=== PATIENT | male | born 1970 ===

== ENCOUNTER 2021-06-07 12:41 | Emergency (ER) | payer SELFPAY ==
[2021-06-07 13:51] VITALS: BP 128/80
[2021-06-07] MEDS ORDERED: ASPIRIN 325 MG TAB PO ONE (13:56)
--- NOTE | 2021-06-07 13:58 | Emergency Department Report ---
ED Chest Pain HPI - General Chief Complaint: Chest Pain Stated Complaint: CHEST PAIN,ABD PAIN PUI?: No Time Seen by Provider: 06/07/21 13:56 Source: patient Mode of arrival: Ambulatory Limitations: No Limitations - History of Present Illness Initial Comments: 51yo male comes to er co abd pain x1 year and chest pain. He describes it as sharp and intermittent. Nothing makes it better or worse. No fever or chills. No sob. He has no cardiac hx He has had no cardiac work up He is taking his home bp and diabetic meds He describes the abd pain as diffuse crampy. No diarrhea/vomiting/constipation. He states he has seen his MD for this and they say its related to his DM. The chest pain is new over 2 days. When at rest and with activity- he thought he should have it checked out. He is ambulatory and non ill appearing on exam. - Related Data Allergies Allergy/AdvReac Type Severity Reaction Status Date / Time No Known Allergies Allergy Verified 06/07/21 13:51 Heart Score - HEART Score History: Slightly suspicious EKG: Normal Age: 45-65 Risk factors: > 3 risk factors or hx of atherosclerotic disease Troponin: < normal limit HEART Score: 3 - EKG Read Time Time EKG Completed: 14:28 EKG Read Time: 14:28 - Critical Actions Critical Actions: 4-6 pts:12-16.6% risk of adverse cardiac event. Should be admitted ED Review of Systems ROS: Stated complaint: CHEST PAIN,ABD PAIN Other details as noted in HPI Comment: All other systems reviewed and negative ED Past Medical Hx - Past Medical History Previous Medical History?: Yes Hx Hypertension: Yes Hx Diabetes: Yes - Surgical History Past Surgical History?: No - Family History Family history: no significant - Social History Smoking Status: Never Smoker Substance Use Type: None ED Physical Exam - General Limitations: No Limitations General appearance: alert, in no apparent distress - Head Head exam: Present: atraumatic, normocephalic - Eye Eye exam: Present: normal appearance - ENT ENT exam: Present: mucous membranes moist - Neck Neck exam: Present: normal inspection - Respiratory Respiratory exam: Present: normal lung sounds bilaterally. Absent: respiratory distress - Cardiovascular Cardiovascular Exam: Present: regular rate, normal rhythm. Absent: systolic murmur, diastolic murmur, rubs, gallop - GI/Abdominal GI/Abdominal exam: Present: soft, normal bowel sounds - Rectal Rectal exam: Present: deferred - Extremities Exam Extremities exam: Present: normal inspection - Back Exam Back exam: Present: normal inspection - Neurological Exam Neurological exam: Present: alert, oriented X3 - Psychiatric Psychiatric exam: Present: normal affect, normal mood - Skin Skin exam: Present: warm, dry, intact, normal color. Absent: rash ED Course Vital Signs 06/07/21 13:47 Temperature 99.1 F Pulse Rate 72 Respiratory 16 Rate Blood Pressure 128/80 O2 Sat by Pulse 99 Oximetry AKIL score - Akil Score Age > 65: (0) No Aspirin use within the Past 7 Days: (0) No 3 or more CAD Risk Factors: (0) No 2 or more Angina events in past 24 hrs: (0) No Known CAD with more than 50% Stenosis: (0) No Elevated Cardiac Markers: (0) No ST Deviation Greater than 0.5mm: (0) No AKIL Score: 0 ED Medical Decision Making - Lab Data Result diagrams: 06/07/21 14:28 06/07/21 14:28 - EKG Data -: EKG Interpreted by Ga EKG shows normal: sinus rhythm Rate: normal - EKG Data When compared to previous EKG there are: no significant change Interpretation: no acute changes - Radiology Data Radiology results: report reviewed, image reviewed [facility] - Medical Decision Making Vital Signs 06/07/21 13:47 Temperature 99.1 F Pulse Rate 72 Respiratory 16 Rate Blood Pressure 128/80 O2 Sat by Pulse 99 Oximetry Labs 06/07/21 06/07/21 14:28 14:28 WBC 7.8 RBC 5.12 H Hgb 14.7 Hct 44.1 MCV 86 MCH 29 MCHC 33 RDW 13.1 L Plt Count 258 Lymph % (Auto) 19.6 Nolan % (Auto) 8.3 H Eos % (Auto) 0.5 Baso % (Auto) 0.3 Lymph # (Auto) 1.5 Nolan # (Auto) 0.6 Eos # (Auto) 0.0 Baso # (Auto) 0.0 Seg Neutrophils % 71.3 H Seg Neutrophils # 5.6 Sodium 138 Potassium 3.7 Chloride 95.5 L Carbon Dioxide 27 Anion Gap 19 BUN 10 Creatinine 0.8 Estimated GFR > 60 BUN/Creatinine Ratio 13 Glucose 202 H Calcium 9.3 Total Bilirubin 0.70 AST 10 ALT 10 Alkaline Phosphatase 76 Troponin T < 0.010 Total Protein 8.6 H Albumin 4.1 Albumin/Globulin Ratio 0.9 1530 I am unable to locate pt for dispo discussion. RN aware. 1615 pt returned educated on lab findings he states that is what he always says pt dc home with referral to PCP and cards for baseline work up He verbalizes understanding of dc plan of care. He has no pain on d/c. - Differential Diagnosis RO ACS/RO HYPERGLYCEMIA/A-C ABD PAIN/URI Critical care attestation.: If time is entered above; I have spent that time in minutes in the direct care of this critically ill patient, excluding procedure time. ED Disposition Clinical Impression: Atypical chest pain Abdominal pain Qualifiers: Abdominal location: generalized Qualified Code(s): R10.84 - Generalized abdominal pain Disposition: 07 LEFT AWOL/ELOPED Is pt being admited?: No Does the pt Need Aspirin: No Condition: Stable Instructions: Nonspecific Chest Pain, Adult Additional Instructions: CONTINUE YOUR HOME MEDS YOU SHOULD BE TAKING ASPIRIN 81 MG DAILY DUE TO YOUR RISK FACTORS YOU SHOULD SEE PCP ROUTINELY YOU SHOULD ALSO HAVE A CARDIAC WORK UP GIVEN YOUR RISK FACTORS DONELL GIVEN YOU A REFERRAL TO CARDIOLOGY BELOW Referrals: RICKEY WEBB MD [Staff Physician] - 3-5 Days LARRY LUNDY MD [Staff Physician] - 3-5 Days Time of Disposition: 15:20
--- NOTE | 2021-06-07 14:32 | XRay Report ---
CHEST 2 VIEWS INDICATION / CLINICAL INFORMATION: Chest Pain. COMPARISON: None available. FINDINGS: SUPPORT DEVICES: None. HEART / MEDIASTINUM: No significant abnormality. LUNGS / PLEURA: No significant pulmonary abnormality. No significant pleural effusion. No pneumothora x. ADDITIONAL FINDINGS: No significant additional findings. IMPRESSION: 1. No acute abnormality of the chest. Signer Name: Rodney Leung MD Signed: 06/07/2021 2:28 PM Workstation Name: [id number]
[2021-06-07 14:54] LABS: Basophils % (Auto) 0.3 % (0.0-1.8); Eosinophils % (Auto) 0.5 % (0.0-4.3); Hematocrit 44.1 % (35.5-45.6); Hemoglobin 14.7 gm/dl (11.8-15.2); Lymphocytes # (Auto) 1.5 K/mm3 (1.2-5.4); Lymphocytes % (Auto) 19.6 % (13.4-35.0); Mean Corpuscular HGB Conc 33 % (32-34); Mean Corpuscular Volume 86 fl (84-94); Monocytes # (Auto) 0.6 K/mm3 (0.0-0.8); Monocytes % (Auto) 8.3 % (0.0-7.3); Platelet Count 258 K/mm3 (140-440); Red Blood Count 5.12 M/mm3 (3.65-5.03); Red Cell Distribution Width 13.1 % (13.2-15.2)
[2021-06-07 15:10] LABS: Alanine Aminotransferase 10 units/L (7-56); Albumin 4.1 g/dL (3.9-5); BUN/Creatinine Ratio 13; Blood Urea Nitrogen 10 mg/dL (9-20); Calcium 9.3 mg/dL (8.4-10.2); Hemolysis Index 2
== END 2021-06-07 15:57 | disposition left against medical advice (07) ==
LOC: ED 12:41
DX: R07.89 Other chest pain (principal); R10.84 Generalized abdominal pain; I10 Essential (primary) hypertension; E11.9 Type 2 diabetes mellitus without complications; Z79.899 Other long term (current) drug therapy
CPT/HCPCS: 36415; 71046; 80053; 84484; 85025; 99283